=== PATIENT | female | born 1960 | race Two or more races ===

== ENCOUNTER 2016-10-28 13:09 | Emergency (ER) | payer MEDICAID ==
[~2016-10-28] VITALS: Ht 160 cm; Wt 72.6 kg
[2016-10-28] MEDS ORDERED: LORazepam 0.5 MG TAB PO ONE (13:30)
[2016-10-28] MEDS ORDERED: ASPirin 81 mg TAB PO ONE (13:30)
[2016-10-28 13:55] LABS: Urine Bilirubin Negative (Negative); Urine Blood Negative /uL (Negative); Urine Color Yellow (Yellow); Urine Glucose Normal (Normal); Urine Ketone Negative (Negative); Urine Mucus FEW (None Seen); Urine Nitrite Negative (Negative); Urine RBC 4 /hpf (0 - 4); Urine Squamous Epithelial Cell FEW /hpf (<5)
[2016-10-28 13:55] LABS: Basophils # (auto) 0.1 uL; Basophils % (auto) 0.7 % (0.0-2.0); CONDITION Y; Eosinophils # (auto) 0.3 uL; Eosinophils % (auto) 3.1 % (0.0-7.0); Hematocrit 37.9 % (36.0-46.0); Hemoglobin 12.5 g/dL (12.2-16.2); Lymphocytes # (auto) 2.7 uL; Mean Corpuscular Hemoglobin 29.2 pg (28.0-32.0); Mean Corpuscular Hgb Conc. 33.1 g/dL (32.0-36.0); Mean Corpuscular Volume 88.1 fL (80.0-100.0); Mean Platelet Volume 7.6 fL (7.4-10.4); Monocytes # (auto) 0.5 uL; Monocytes % (auto) 6.3 % (0.0-12.0); Neutrophils # (auto) 4.8 uL; Neutrophils % (auto) 57.9 % (37.0-80.0); Platelet Count (auto) 300 10^3/uL (140-450); Red Cell Distribution Width 17.3 % (11.6-16.0); White Blood Cell 8.3 10^3/uL (4.4-10.8)
[2016-10-28 14:22] LABS: Albumin 3.3 g/dL (3.4-5.0); BUN/Creatinine Ratio 15.2; Bilirubin, Total 0.3 mg/dL (0.2-1.0); Calcium 8.9 mg/dL (8.5-10.1); Magnesium 2.2 mg/dL (1.6-2.6)
[2016-10-28 15:36] VITALS: BP 123/63
[2016-10-28] MEDS ORDERED: NITROFURANTOIN (MONO) 100 mg CAP PO ONE (15:45)
== END 2016-10-28 17:14 | disposition home or self-care (01) ==
LOC: EDBD 13:09 → ER 13:09
DX: F41.9 Anxiety disorder, unspecified (principal); N39.0 Urinary tract infection, site not specified; E11.9 Type 2 diabetes mellitus without complications; I10 Essential (primary) hypertension; Z86.73 Personal history of transient ischemic attack (TIA), and cerebral infarction without residual deficits; Z86.19 Personal history of other infectious and parasitic diseases
CPT/HCPCS: 36415; 71020; 80053; 81001; 83735; 84484; 85025; 93005; 94761

== ENCOUNTER 2018-02-24 09:13 | Emergency (ER) | payer MEDICAID ==
[~2018-02-24] VITALS: Ht 160 cm; Wt 74.8 kg
[2018-02-24] MEDS ORDERED: LORazepam 0.5 MG TAB PO ONE (10:15)
[2018-02-24 10:33] LABS: Basophils # (auto) 0 uL; Basophils % (auto) 0.1 % (0.0-2.0); Eosinophils # (auto) 0.1 uL; Eosinophils % (auto) 1.6 % (0.0-7.0); Hematocrit 38.1 % (36.0-46.0); Hemoglobin 12.2 g/dL (12.2-16.2); Lymphocytes # (auto) 2.2 uL; Lymphocytes % (auto) 28.6 % (10.0-50.0); Mean Corpuscular Hemoglobin 27.6 pg (28.0-32.0); Mean Corpuscular Hgb Conc. 32.1 g/dL (32.0-36.0); Mean Corpuscular Volume 86.1 fL (80.0-100.0); Monocytes # (auto) 0.4 uL; Monocytes % (auto) 4.8 % (0.0-12.0); Neutrophils # (auto) 5.1 uL; Neutrophils % (auto) 64.9 % (37.0-80.0); Platelet Count (auto) 236 10^3/uL (140-450); Red Blood Cells 4.43 10^6/uL (4.0-5.20); Red Cell Distribution Width 15.4 % (11.8-14.3); White Blood Cell 7.8 10^3/uL (4.4-10.8)
[2018-02-24 10:44] LABS: Urine Bacteria NONE SEEN /hpf (None Seen); Urine Blood Negative /uL (Negative); Urine Specific Gravity 1.007 (1.001-1.035); Urine WBC 6 /hpf (0 - 5)
[2018-02-24 10:55] LABS: Albumin 3.6 g/dL (3.4-5.0)
[2018-02-24 10:58] LABS: BUN/Creatinine Ratio 8.5; Bilirubin, Total 0.3 mg/dL (0.2-1.0); Total Protein 8.3 g/dL (6.4-8.2)
[2018-02-24 12:36] VITALS: BP 122/72
== END 2018-02-24 12:13 | disposition home or self-care (01) ==
LOC: ER 09:13
DX: F41.9 Anxiety disorder, unspecified (principal); N39.0 Urinary tract infection, site not specified; J45.909 Unspecified asthma, uncomplicated; E11.9 Type 2 diabetes mellitus without complications; I10 Essential (primary) hypertension; E07.9 Disorder of thyroid, unspecified; Z85.3 Personal history of malignant neoplasm of breast; Z90.49 Acquired absence of other specified parts of digestive tract
CPT/HCPCS: 36415; 80053; 81001; 85025; 93005

== ENCOUNTER 2018-04-13 11:28 | Emergency (ER) | payer MEDICAID ==
[~2018-04-13] VITALS: Ht 160 cm; Wt 68.0 kg
[2018-04-13] MEDS ORDERED: KETOROLAC TROMETH 60MG/2ML VIAL IM ONE (14:15)
[2018-04-13 14:35] VITALS: BP 136/76
== END 2018-04-13 15:02 | disposition home or self-care (01) ==
LOC: ER 11:28
DX: S20.222A Contusion of left back wall of thorax, initial encounter (principal); E11.9 Type 2 diabetes mellitus without complications; I10 Essential (primary) hypertension; J45.909 Unspecified asthma, uncomplicated; E07.89 Other specified disorders of thyroid; Z85.3 Personal history of malignant neoplasm of breast; Z90.49 Acquired absence of other specified parts of digestive tract; W01.0XXA Fall on same level from slipping, tripping and stumbling without subsequent striking against object, initial encounter; Y93.89 Activity, other specified; Y99.8 Other external cause status; Y92.89 Other specified places as the place of occurrence of the external cause
CPT/HCPCS: 72070; 72100; 96372; 99283; J1885

== ENCOUNTER 2018-09-11 19:37 | Emergency (ER) | payer MEDICAID ==
[~2018-09-11] VITALS: Ht 160 cm; Wt 57.6 kg
[2018-09-11 20:19] LABS: Basophils # (auto) 0 uL; Basophils % (auto) 0.5 % (0.0-2.0); Eosinophils # (auto) 0.1 uL; Eosinophils % (auto) 0.9 % (0.0-7.0); Hematocrit 38.3 % (36.0-46.0); Hemoglobin 12.8 g/dL (12.2-16.2); Lymphocytes # (auto) 3.8 uL; Lymphocytes % (auto) 45.8 % (10.0-50.0); Mean Corpuscular Hemoglobin 29.3 pg (28.0-32.0); Mean Corpuscular Hgb Conc. 33.5 g/dL (32.0-36.0); Mean Corpuscular Volume 87.4 fL (80.0-100.0); Monocytes # (auto) 0.6 uL; Neutrophils # (auto) 3.8 uL; Neutrophils % (auto) 45.8 % (37.0-80.0); Nucleated Red Blood Cells % 0.2 %; Platelet Count (auto) 244 10^3/uL (140-450); Red Blood Cells 4.39 10^6/uL (4.0-5.20); Red Cell Distribution Width 14.7 % (11.8-14.3); White Blood Cell 8.3 10^3/uL (4.4-10.8)
[2018-09-11 20:30] LABS: Alanine Aminotransferase 17 U/L (13-56); Albumin 3.9 g/dL (3.4-5.0); Anion Gap 6 (5-15); Aspartate Aminotransferase 19 U/L (15-37); BUN/Creatinine Ratio 19.8; Blood Alcohol < 3.0 mg/dL (0-5); Blood Urea Nitrogen 16 mg/dL (7-18); Calcium 9.1 mg/dL (8.5-10.1); Carbon Dioxide 28 mmol/L (21-32); Chloride 106 mmol/L (98-107); GFR African American 93 mL/min; GFR Non-African American 77 mL/min; Glucose 116 mg/dL (74-106); Sodium 140 mmol/L (136-145)
[2018-09-11 20:33] LABS: Alkaline Phosphatase 144 U/L (45-117); Bilirubin, Total 0.2 mg/dL (0.2-1.0); Total Protein 8.1 g/dL (6.4-8.2)
[2018-09-11 21:17] LABS: Acetaminophen < 2.0 ug/mL (10-30); Salicylate < 1.7 mg/dL (2.8-20.0)
[2018-09-11 21:27] LABS: Urine Bacteria NONE SEEN /hpf (None Seen); Urine Blood Negative /uL (Negative); Urine Specific Gravity 1.012 (1.001-1.035); Urine WBC 2 /hpf (0 - 5)
[2018-09-11 21:41] LABS: Alcohol, Urine < 3.0 mg/dL (0-5); Amphetamine Screen, Urine NEGATIVE (NEGATIVE); Barbiturate Scree,Urine NEGATIVE (NEGATIVE); Benzodiazephine Screen, Urine NEGATIVE (NEGATIVE); Cannabinoid Screen, Urine NEGATIVE (NEGATIVE); Cocaine Screen, Urine NEGATIVE (NEGATIVE); Opiate Scree,Urine POSITIVE (NEGATIVE); Phencyclidine Screen, Urine NEGATIVE (NEGATIVE)
[2018-09-11 23:00] VITALS: BP 126/72
== END 2018-09-12 00:13 | disposition home or self-care (01) ==
LOC: ER 19:37
DX: Z91.14 Patient's other noncompliance with medication regimen (principal); F41.9 Anxiety disorder, unspecified; J45.909 Unspecified asthma, uncomplicated; E11.9 Type 2 diabetes mellitus without complications; E78.5 Hyperlipidemia, unspecified; I10 Essential (primary) hypertension; Z86.73 Personal history of transient ischemic attack (TIA), and cerebral infarction without residual deficits; Z86.39 Personal history of other endocrine, nutritional and metabolic disease; Z90.49 Acquired absence of other specified parts of digestive tract
CPT/HCPCS: 36415; 80053; 80307; 80320; 80329; 81001; 85025